=== PATIENT | female | born 1995 | race Caucasian/White ===

== ENCOUNTER 2017-11-12 18:53 | Emergency (ER) | payer OTHER ==
[2017-11-12 19:10] VITALS: BP 127/69; PULSE 90; TEMP 99.1; BMI 29.2
--- NOTE | 2017-11-12 19:37 | PDOC ---
History of Present Illness - General Chief Complaint: Vaginal Sxs Stated Complaint: VAGINAL DISCHARGE Time Seen by Provider: 11/12/17 19:18 History Source: Patient Exam Limitations: No Limitations - History of Present Illness Travel History: No Initial Comments: 11/12/17 19:43 22 yr female with c/o lump to vagina for 3 days started to bleed today. no fever no chills denies vaginal discharge. no medical history. Past History - Past Medical History Allergies/Adverse Reactions: Allergies Allergy/AdvReac Type Severity Reaction Status Date / Time No Known Allergies Allergy Verified 11/12/17 19:04 Home Medications: Ambulatory Orders NK [No Known Home Medication] 11/12/17 COPD: No Other medical history: Pt denies - Suicide/Smoking/Psychosocial Hx Smoking Status: No Smoking History: Never smoked Have you smoked in the past 12 months: No Number of Cigarettes Smoked Daily: 0 Information on smoking cessation initiated: No Hx Alcohol Use: No Drug/Substance Use Hx: No Substance Use Type: None *Physical Exam - Vital Signs Last Vital Signs Temp Pulse Resp BP Pulse Ox 99.1 F 90 18 127/69 98 11/12/17 19:05 11/12/17 19:05 11/12/17 19:05 11/12/17 19:05 11/12/17 19:05 - Physical Exam General Appearance: Yes: Nourished, Appropriately Dressed HEENT: positive: EOMI, PEREZ Respiratory/Chest: positive: Lungs Clear, Normal Breath Sounds Female Pelvic Exam: positive: other (right side vaginal abscess , indurated 1cm area of fluctuance) Gastrointestinal/Abdominal: positive: Normal Bowel Sounds, Soft Musculoskeletal: positive: Normal Inspection Extremity: positive: Normal Capillary Refill, Normal Inspection, Normal Range of Motion Neurologic: positive: Fully Oriented, Alert, Normal Mood/Affect, Normal Response , Motor Strength 5/5 Procedures - Incision and Drainage I&D Site: Right: Bartholin (labia majora) Betadine cleansed: Yes Anesthesia: 1% Lidocaine Volume(ml): 3 Blade Size: 10 Attempts: 1 Complications: none Dressing: Yes Progress: 11/12/17 19:46 small amount of blood returned, no pus, indurated , approx [id number] wound culture sent Medical Decision Making - Medical Decision Making 11/12/17 19:43 cc: vaginal abscess draining blood no fever no abd pain will send wound culture I & D performed, no pus only blood returned 11/12/17 19:47 pt understands to sit in warm tub for 20 minutes 3x day nothing on the area return to ER if worse in the next 24hrs follow with [facility]IE[facility] CLERK SHELTER Saturday pt agrees with plan and understands the plan of care. *DC/Admit/Observation/Transfer Diagnosis at time of Disposition: Abscess - Discharge Dispostion Disposition: HOME Condition at time of disposition: Good - Referrals Referrals: Elizabet Bains MD [Staff Physician] - - Patient Instructions Additional Instructions: follow with the aquaculture farm manager saturday or Saturday return to ER for any worsening symptoms take motrin as needed for pain sit in the warm tub frequently and keep area dry free from powders, lotions - Post Discharge Activity
--- NOTE | 2017-11-17 18:38 | PDOC ---
Patient Follow-up (Call Back) - Post ED Follow - Up Condition at time of discharge: Good Disposition at time of original discharge: HOME Reason for Call Back: Abnwl. Microbiology (Called pt for (+) wound culture. States she was placed on keflex by her SALVAGE INSPECTOR. Informed pt that keflex will not cover the type of bacteria she has and switched her to amoxicillin per the sensitivity. Pt states she will stop taking the keflex, switch to amoxicillin and follow up with her SALVAGE INSPECTOR this week.)
== END 2017-11-12 19:42 | disposition home or self-care (01) ==
LOC: JER 18:53
PROC: 0U9L00Z Drainage of Vestibular Gland with Drainage Device, Open Approach (ICD-10-PCS; principal; 2017-11-12)
DX: N75.1 Abscess of Bartholin's gland (principal)
CPT/HCPCS: 87070; 87077; 87186; 87205; 99281-25